=== PATIENT | female | born 1995 | race Caucasian/White ===

== ENCOUNTER → 2018-01-20 | Outpatient (CLI) | payer BC ==
--- NOTE | 2018-01-20 09:16 | RADIOLOGY IMAGING REPORT ---
FACILITY: [facility] PATIENT NAME: Jeannie Blanca : 1995 MR: [id number] V: [id number] EXAM DATE: ORDERING PHYSICIAN: JEFFRY BRUNNER TECHNOLOGIST: Location: [facility] [place] Patient: Jeannie Blanca : 1995 Visit/Account:[id number] Date of Sevice: 01/20/2018 KNEE LEFT W/O CONTRAST COMPARISON: Left knee radiographs from [facility], January 15, 2018, no report available. HISTORY: Left knee pain after jumping related injury. TECHNIQUE: Noncontrast multiplanar MRI of the left knee utilizing T1 weighted and fluid sensitive se quences. CONTRAST: None. FINDINGS: FLUID: A moderate size, simple effusion is present. There is no Hammond's cyst. MENISCI: The lateral meniscus is intact. Suspected vertically oriented complex tear throughout the p eripheral third of the posterior horn medial meniscus on series 4 images 11 and 12, with a 0.8 x 1.2 x 1.7 cm cystic lesion near its and the PCL insertion, probably representing a parameniscal cyst. TENDONS/LIGAMENTS: Absent ACL consistent with a complete tear, with edema-like signal throughout fra yed residual irregular fibers at its expected location consistent with an acute tear. Mild edema emeka cent to the intact MCL consistent with an acute grade 1 MCL sprain. The posterior cruciate ligament, lateral collateral ligamentous complex, retinacula and extensor mechanism are intact and normal in si gnal. The biceps and popliteus tendons are intact and unremarkable. MUSCLES: There is no muscle atrophy or edema. BONES AND CARTILAGE: Moderate focal bone marrow edema in the weightbearing lateral femoral condyle d eep to a subtle impression in the subchondral bone consistent with acute impaction fracture. Moderate bone marrow edema in the posterolateral margin of the lateral tibial plateau, without definite fract ure consistent with contusion. There is mild bone marrow edema throughout the lateral tibial metaphys is and there is mild bone marrow edema in the fibular head. Elsewhere normal marrow signal and alignm ent. Heterogeneous intermediate signal in the patellar apex cartilage, without well-defined defect. The tr ochlear cartilage is intact. Moderate focal thinning of the weightbearing lateral femoral condyle art icular cartilage at the site of impaction, without full-thickness medial compartment articular cartil age loss. The medial compartment cartilage is intact. OTHER: Negative. IMPRESSION: 1. Acute-appearing, complete tear of the ACL in the left knee. 2. Mild impaction fracture, lateral sulcus terminalis. Bone contusions in the lateral tibial plateau and fibular head. 3. Acute grade 1 MCL sprain. 4. Suspected complex tear, peripheral third of the posterior horn of the medial meniscus with an adj acent 1.7 cm parameniscal cyst. 5. Grade 1 patellar chondromalacia. 6. Moderate size simple effusion. Report Dictated By: Vahid Brown at 01/20/2018 8:51 AM Report E-Signed By: Vahid Brown at 01/20/2018 9:11 AM WSN:[id number]
== END ==
LOC: MRI 07:35
PROVIDERS: ATTEND Orthopaedic Surgery
DX: M25.562 Pain in left knee (principal); S83.201A Bucket-handle tear of unspecified meniscus, current injury, left knee, initial encounter; M25.462 Effusion, left knee